=== PATIENT | female | born 1975 | race Caucasian/White ===

== ENCOUNTER 2023-07-06 16:13 | Emergency (ER) | payer OTHER ==
[~2023-07-06] VITALS: Ht 162.6 cm; Wt 86.2 kg
[2023-07-06] MEDS ORDERED: ONDANSETRON 4 MG/2 ML VIAL IV ONE (20:00)
[2023-07-06] MEDS ORDERED: LIDOCAINE VISCUS 2% 15 ML UDC MM ONE (20:00)
[2023-07-06] MEDS ORDERED: MAG HYDROX/AL HYDROX/SIMETH 30 ML LIQUID UDC PO ONE (20:00)
[2023-07-06] MEDS ORDERED: PANTOPRAZOLE SODIUM 40 MG VIAL IV ONE (20:00)
[2023-07-06] MEDS ORDERED: HYDROMORPHONE 1 MG/1 ML DISP.SYRIN IV ONE (20:00)
[2023-07-06] MEDS ORDERED: DICYCLOMINE HCL LIQ 10 MG/5 ML UDC PO ONE (20:00)
[2023-07-06 20:15] LABS: BASOPHILS % (AUTO) 0.5 % (0.0-2.0); EOSINOPHILS # (AUTO) 0.1 K/uL (0.0-0.7); EOSINOPHILS % (AUTO) 1.1 % (0.0-7.0); HEMATOCRIT 41.3 % (31.2-41.9); HEMOGLOBIN 13.8 g/dL (10.9-14.3); LYMPHOCYTES # (AUTO) 2.1 K/uL (0.8-4.8); LYMPHOCYTES % (AUTO) 27.8 % (20.5-51.5); MEAN CORPUSCULAR HEMOGLOBIN 27.8 uug (24.7-32.8); MEAN CORPUSCULAR HGB CONC 33 g/dL (32.3-35.6); MEAN CORPUSCULAR VOLUME 83.3 fL (75.5-95.3); MONOCYTES # (AUTO) 0.7 K/uL (0.1-1.30); NEUTROPHILS # (AUTO) 4.7 K/uL (1.8-8.9); NEUTROPHILS % (AUTO) 61.6 % (38.5-71.5); PLATELET COUNT (AUTO) 216 K/uL (179-408); RED BLOOD CELL COUNT(AUTO) 4.96 MIL/uL (3.63-4.92); RED CELL DISTRIBUTION WIDTH 13.9 % (12.3-17.7); WHITE BLOOD COUNT (AUTO) 7.6 K/uL (3.8-11.8)
[2023-07-06] MEDS ORDERED: PANTOPRAZOLE SODIUM 40 MG VIAL ONE (20:16)
[2023-07-06] MEDS ORDERED: DICYCLOMINE HCL LIQ 10 MG/5 ML UDC ONE ×2 (20:16→20:17)
[2023-07-06] MEDS ORDERED: ONDANSETRON 4 MG/2 ML VIAL ONE (20:16)
[2023-07-06] MEDS ORDERED: LIDOCAINE VISCUS 2% 15 ML UDC ONE (20:16)
[2023-07-06] MEDS ORDERED: MAG HYDROX/AL HYDROX/SIMETH 30 ML LIQUID UDC ONE (20:16)
[2023-07-06] MEDS ORDERED: HYDROMORPHONE 1 MG/1 ML DISP.SYRIN ONE (20:17)
[2023-07-06 20:21] LABS: DIFFERENTIAL COMMENT 1
[2023-07-06 20:29] LABS: CALCIUM 9.1 mg/dL (8.5-10.1); CARBON DIOXIDE 27 mmol/L (21-32); CHLORIDE 101 mmol/L (98-107); CREATININE 0.7 mg/dL (0.6-1.3); GLUCOSE 89 mg/dL (74-106); POTASSIUM 3.3 mmol/L (3.5-5.1); SODIUM SERUM 136 mmol/L (136-145); UREA NITROGEN, BLOOD 12 mg/dL (7-18)
[2023-07-06 20:38] LABS: ALANINE AMINOTRANSFERASE 25 U/L (14-59); ALBUMIN 3.9 g/dL (3.4-5.0); ALKALINE PHOSPHATASE 91 U/L (50-136); ASPARTATE AMINOTRANSFERASE 9 U/L (15-37); BILIRUBIN,DIRECT 0.2 mg/dL (0.0-0.2); BILIRUBIN,TOTAL 0.8 mg/dL (0.2-1.0); LIPASE 32 U/L (16-77); TOTAL PROTEIN, SERUM 8.2 g/dL (6.4-8.2)
[2023-07-06 20:45] LABS: PREGNANCY TEST SERUM QUAN 1 miul/L (0-6)
[2023-07-06] MEDS ORDERED: diphenhydrAMINE 50 MG/1 ML VIAL IV ONE (21:45)
[2023-07-06] MEDS ORDERED: METOCLOPRAMIDE HCL 10 MG/2 ML VIAL IV ONE (21:45)
[2023-07-06] MEDS ORDERED: diphenhydrAMINE 50 MG/1 ML VIAL ONE (22:21)
[2023-07-06] MEDS ORDERED: METOCLOPRAMIDE HCL 10 MG/2 ML VIAL ONE (22:21)
[2023-07-06] MEDS ORDERED: OMEP40CA21 PO (23:09)
[2023-07-06] MEDS ORDERED: ONDA4TAB5 PO (23:09)
[2023-07-06] MEDS ORDERED: DICY20TA11 PO (23:09)
[2023-07-06 23:15] VITALS: BP 119/60; TEMP 97.8; O2SAT 97
== END 2023-07-06 23:18 | disposition home or self-care (01) ==
LOC: ER 16:18
DX: R10.13 Epigastric pain (principal); R11.2 Nausea with vomiting, unspecified; R10.2 Pelvic and perineal pain; Z98.890 Other specified postprocedural states; Z88.0 Allergy status to penicillin
CPT/HCPCS: 36415; 71045; 83690; 84484; 85025; 93005; A4606; A4663; C9113; J1170; J1200; J2405; J2765